=== PATIENT | female | born 1965 | race African-American/Black ===

== ENCOUNTER 2017-06-26 21:26 | Emergency (ER) | payer MEDICAID, OTHER ==
[~2017-06-26] VITALS: Ht 162.6 cm; Wt 69.0 kg
[2017-06-26 21:44] VITALS: BP 108/75
== END 2017-06-27 02:00 | disposition left against medical advice (07) ==
LOC: ER 21:41
DX: F41.9 Anxiety disorder, unspecified (principal); Z53.21 Procedure and treatment not carried out due to patient leaving prior to being seen by health care provider